=== PATIENT | female | born 1985 | race Caucasian/White ===

== ENCOUNTER 2016-11-04 21:33 | Emergency (ER) | payer MEDICARE, OTHER ==
--- NOTE | ~2016-11-04 | CR181 ---
[facility] A Service of [facility] & [facility] RADIOLOGY TEXT RESULTS PATIENT: DESIRE JACKSON LOCATION: [facility] : 89 UNIT #: [id number] AGE: [address]: Adilene Cast APRN SEX: F ORDER DR: [id number] [facility] [address] [place], [place] [address] [id number] E MR#: [id number] Acc #: [id number] NAME: DESIRE JACKSON. : 1985 SEX: F STUDY DATE/TIME: 11/04/2016 21:52 UNIT: [facility] ROOM: STUDY DESCRIPTION: CR Lumbar Spine 2 or 3 Views Attending Physician: Adilene Cast A.P.R.N. Ordering Physician: Adilene Cast A.P.R.N. Primary Care Physician: Kamille Hernandez M.D. MEDICAL IMAGING REPORT This report is preliminary unless electronic signature is present EXAM Lumbar spine 3 views, 11/04/2016 HISTORY Low back pain with bilateral leg numbness for 3 days. FINDINGS AP and lateral projections of the lumbar segment show good mineralization of both anterior and posterior elements. They are all anatomically normal without indication of fracture, dislocation, or malignant change of a sclerotic or lytic type. There is no congenital defect noted. The sacroiliac joints are normal. IMPRESSION Normal lumbar spine. Dictated by... Angel Landon M.D. THIS IS AN ELECTRONICALLY VERIFIED REPORT Angel Landon M.D. at 11/05/2016 10:47 AM [place] TD: 11/05/2016 08:55 JOB #: [id number] MEDICAL IMAGING REPORT Page 1 of 1 COPY
[~2016-11-04 21:33] MED LIST: DARVOCET-N 1001 TAB PO; FLEXERIL PO; FLEXERIL10 M1 PO; FLEXERIL10 MG PO; HYDROCODONE-APA1 T57 PO; IBUPROFEN PO; KEPPRA500 M1 PO; KEPPRA500 M2 PO; KEPPRA750 MG PO; LAMICTAL PO; MACRODANTIN PO; NAPROXEN PO; NO MEDICATIONS; TOPAMAX PO; TYLENOL325 M1 PO; VICODIN 5/1 TAB 5/50 PO; VICOPROFEN 200-1 TAB PO; VOLTAREN75 MG PO
[2016-11-04 21:34] LABS: URINE SOURCE CLEAN CATCH
[2016-11-04 21:54] LABS: URINE APPEARANCE CLOUDY; URINE BILIRUBIN NEG (NEG); URINE BLOOD NEG (NEG); URINE COLOR DK YELLOW; URINE GLUCOSE NEG (NEG); URINE KETONE TRACE (NEG); URINE LEUKOCYTE ESTERASE TRACE (NEG); URINE NITRATE NEG (NEG); URINE PH 5.5 (5-8); URINE PROTEIN TRACE (NEG); URINE SPECIFIC GRAVITY 1.028 (1.003-1.035); URINE UROBILINOGEN 0.2 MG/DL (NEG)
[2016-11-04 21:57] LABS: CULTURE INDICATED? YES; URBCS1 AUWI 0-2 /[HPF] (0-2); URINE BACTERIA AUWI 1+ (NEGATIVE); URINE SQUAMOUS EPITHELIAL CELL MOD /[HPF]
[2016-11-04 22:05] LABS: U HYALINE CASTS AUWI 0-2 /[LPF]; URINE MUCUS PRESENT
[2016-11-04 22:13] LABS: AMPHETAMINE POS (NEG); BARBITURATES NEG (NEG); BENZODIAZEPINES NEG (NEG); COCAINE NEG (NEG); MARIJUANA POS (NEG); OPIATES POS (NEG); TRICYCLIC ANTIDEPRESSANTS NEG (NEG); U METHADONE NEG (NEG)
== END 2016-11-04 22:48 | disposition home or self-care (01) ==
LOC: CFTX 21:33
PROVIDERS: Nurse Practitioner
DX: M54.5 Low back pain (principal); G89.29 Other chronic pain; F15.10 Other stimulant abuse, uncomplicated; F12.10 Cannabis abuse, uncomplicated; F11.10 Opioid abuse, uncomplicated; F41.9 Anxiety disorder, unspecified; G40.909 Epilepsy, unspecified, not intractable, without status epilepticus; F17.210 Nicotine dependence, cigarettes, uncomplicated; Z79.899 Other long term (current) drug therapy
CPT/HCPCS: 72100; 80307; 81003; 84703; 87086; 96372; 99283; J1885

== ENCOUNTER 2017-02-26 01:40 | Emergency (ER) | payer MEDICARE, OTHER ==
[~2017-02-26] VITALS: Ht 165.1 cm; Wt 90.7 kg
== END 2017-02-26 03:17 | disposition home or self-care (01) ==
LOC: SED 01:40
DX: G43.909 Migraine, unspecified, not intractable, without status migrainosus (principal); F17.200 Nicotine dependence, unspecified, uncomplicated; R56.9 Unspecified convulsions; F19.10 Other psychoactive substance abuse, uncomplicated
CPT/HCPCS: 96361; 96374; 96375; 99283; J1885; J2550